=== PATIENT | male | born 1985 | race Caucasian/White ===

== ENCOUNTER 2019-10-08 06:33 | Emergency (ER) | payer BC ==
--- NOTE | 2019-10-08 07:07 | EDM.PDOC ---
ED HPI GENERAL MEDICAL PROBLEM - General Chief Complaint: Abdominal Pain Stated Complaint: ABDOMINAL PAIN Time Seen by Provider: 10/08/19 06:57 Source of Information: Reports: Patient History Limitations: Reports: No Limitations - History of Present Illness INITIAL COMMENTS - FREE TEXT/NARRATIVE: 34-year-old male presents to the ED with recurrent epigastric right upper quadrant abdominal pains that seem to be coming throughout the night. He states t that he had one similar bout about a week ago that only lasted 1 day but for the last 3 nights he is awoken with epigastric pain radiating along his costal margin on the right side. Not sure if it radiates into the back. He does not have heartburn he does not have any feeling of need to burp or belch. States his bowel function has been normal with no diarrhea. No previous abdominal surgery. Is been up most of the night with cramping abdominal pain a strong colicky component to the pain sharp and stabbing. No nausea vomiting. No associated fever or chills. He is currently getting over a upper respiratory tract infection i.e. a cold with minimal cough. He takes no medications. He has no problems eating or drinking. He states he drinks alcohol socially. Onset: Gradual Onset Date: 10/05/19 (Remittent upper abdominal pain primarily epigastrium pit of the stomach and slightly across the right costal margin for the last 3 nights.) Duration: Getting Worse, Intermittent, Waxing/Waning Location: Reports: Abdomen Quality: Reports: Ache, Sharp, Stabbing Severity: Moderate Improves with: Reports: None Worsens with: Reports: None Context: Reports: Other (Spontaneous occurrence.). Denies: Activity, Exercise, Lifting, Sick Contact, Trauma Associated Symptoms: Reports: No Other Symptoms, Malaise. 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 [No Known Home Meds] 10/08/19 [History] Past Medical History - Past Surgical History HEENT Surgical History: Reports: Tonsillectomy Social & Family History - Tobacco Use Smoking Status *Q: Former Smoker Used Tobacco, but Quit: Yes Month/Year Tobacco Last Used: 2011 - Recreational Drug Use Recreational Drug Use: No - Living Situation & Occupation Living situation: Reports: Occupation: Employed ED ROS GENERAL - Review of Systems Review Of Systems: See Below Constitutional: Denies: Fever, Chills, Malaise, Weakness, Fatigue, Decreased Appetite, Weight Loss HEENT: Reports: Other (And over nasal congestion cold at this time.) Respiratory: Reports: Cough. Denies: Shortness of Breath, Wheezing ( Intermittent cough of yellow sputum. Seems to be postnasal drainage.), Pleuritic Chest Pain Cardiovascular: Reports: No Symptoms. Denies: Chest Pain, Blood Pressure Problem, Claudication, Dyspnea on Exertion, Edema, Lightheadedness, Orthopnea Endocrine: Reports: No Symptoms GI/Abdominal: Reports: Abdominal Pain (See history of present illness.). Denies : Constipation, Diarrhea, Decreased Appetite, Difficulty Swallowing, Hematemesis , Hematochezia, Mucous in Stool : Reports: No Symptoms Musculoskeletal: Reports: No Symptoms Skin: Reports: No Symptoms Neurological: Reports: No Symptoms Psychiatric: Reports: No Symptoms Hematologic/Lymphatic: Reports: No Symptoms ED EXAM, GI/ABD - Physical Exam Exam: See Below Exam Limited By: No Limitations General Appearance: Alert, WD/WN, Anxious, Mild Distress, Other (Vital signs show temperature 36.5. Heart rate is 76 and sinus respiratory is 19 O2 sats 96 % on room air BP 135/98.) Eyes: Bilateral: Normal Appearance Throat/Mouth: Normal Inspection, Normal Lips, Normal Teeth, Normal Oropharynx Head: Atraumatic, Normocephalic Neck: Normal Inspection, Supple, Non-Tender, Full Range of Motion. No: Lymphadenopathy (L), Lymphadenopathy (R) Respiratory/Chest: No Respiratory Distress, Lungs Clear, Normal Breath Sounds, No Accessory Muscle Use Cardiovascular: Normal Peripheral Pulses, Regular Rate, Rhythm, No Edema, No Gallop, No Murmur, No Rub GI/Abdominal Exam: Soft, Non-Tender, No Organomegaly, Pelvis Stable, Abnormal Bowel Sounds (Sounds are hyperactive in all 4 quadrants particular the right lower quadrant with high-pitched tinkling bowel sounds.), Other (I believe I can palpate his right hemicolon.). No: Guarding, Rigid, Rebound, Tender (Male) Exam: No Hernia Back Exam: Normal Inspection, Full Range of Motion. No: CVA Tenderness (L), CVA Tenderness (R) Extremities: Normal Inspection, Normal Range of Motion, Non-Tender Neurological: Alert, Oriented, CN II-XII Intact, Normal Cognition Psychiatric: Normal Affect, Normal Mood Skin Exam: Warm, Dry, Intact, Normal Color, No Rash Course - Vital Signs Last Recorded V/S: Last Vital Signs Temp 36.5 C 10/08/19 06:41 Pulse 76 10/08/19 06:41 Resp 19 10/08/19 06:41 BP 135/98 H 10/08/19 06:41 Pulse Ox 96 10/08/19 06:41 - Orders/Labs/Meds Orders: Active Orders 24 hr Category Date Time Status URINALYSIS W/MICROSCOPIC [UA W/MICROSCOPIC] [URIN] Stat Lab 10/08/19 07:01 Ordered Meds: Medications Discontinued Medications Generic Name Dose Route Start Last Admin Trade Name Andree PRN Reason Stop Dose Admin Magnesium Citrate 240 ml 10/08/19 07:36 10/08/19 07:53 Citrate Of Magnesia PO 10/08/19 07:37 240 ml ONETIME ONE Administration - Radiology Interpretation Free Text/Narrative:: 34-year-old male presents to the ED with recurrence of epigastric right upper quadrant abdominal pain that is waking up at night for last 3-4 nights. Does not appreciate any burning component to the pain like dyspepsia. Has no history of heartburn or indigestion. No burping belching associated with the pain. Pain is sharp stabbing and seems to shoot across the upper abdomen. States it will double up at times because of the severity of the pain. Is been present the pain is abated and is down to 1 or 2 out of 10. And reveals hyperactive bowel sounds all 4 quadrants particular right lower quadrant and I believe I can palpate his right hemicolon. The rest of the abdomen is benign particular no McBurney's sign or Alves sign. - Re-Assessments/Exams Free Text/Narrative Re-Assessment/Exam: 10/08/19 07:37 evaluation in the emergency room today in regards to recurrent epigastric or pit of the stomach abdominal pain rating across to the right upper abdomen and slightly into your right back. This is occurred the last 3 nights but last night was much worse than the previous nights. Also occurred once about a week ago. On examination bowel sounds were found to be quite hyperactive in all 4 quadrants of the abdomen indicating that the small bowel was working overtime trying to put something along. The abdomen is otherwise benign showing no evidence of any surgical problems. An x-ray of the abdomen confirms clinical suspicion of constipation with a lot of increased stool throughout the entire right side of the colon up underneath the liver. Therefore this is the problem causing abdominal pain. Treatment is magnesium citrate course called Citroma take 8 ounces mixed with 6 ounces of juice of choice or Gatorade Powerade mouth once. This will usually start to work in 1 to 2 hours and bowels will usually move 3 or 4 times ending in some mild diarrhea. It usually does not cause any cramping. Suggest off work the least this morning. You should be pain-free once the bowel is cleansed. Return to medical care if you have any other problems after bowel cleanse. Departure - Departure Time of Disposition: 07:38 Disposition: Home, Self-Care 01 Condition: Fair Clinical Impression: Constipation by delayed colonic transit Abdominal pain Qualifiers: Abdominal location: epigastric Qualified Code(s): R10.13 - Epigastric pain - Discharge Information *PRESCRIPTION DRUG MONITORING PROGRAM REVIEWED*: Not Applicable *COPY OF PRESCRIPTION DRUG MONITORING REPORT IN PATIENT KATHERIN: Not Applicable Instructions: Constipation, Adult Referrals: PCP,None [Primary Care Provider] - Forms: ED Department Discharge, ED Return to Work/School Form Additional Instructions: Evaluation in the emergency room this morning in regards to recurrence of upper abdominal pain radiating slightly along the right costal margin to right upper abdomen. This is been occurring on a regular basis over the last 3 nights. Last night was the worst. On examination bowel sounds are quite active in all 4 quadrants and was otherwise soft palpation showing no signs of surgical problems. An x-ray of the abdomen confirms constipation with the right hemicolon being stool-filled and very minimal amount of stool in the transverse colon and descending colon. Therefore some for some reason you are still has backed up on you on your right colon as usually it is liquid when it empties out of the small bowel. Your body will still extra fluids from the bowel if you get dehydrated and you have been ill recently with upper respiratory tract infection and low-grade fever which is likely help precipitate this problem. Treatment is to take magnesium citrate or Citroma recommend 8 ounces mixed with 6 ounces of juice of choice taken once. This usually will take 1 to 2 hours to start to work and the bowels will usually move 3 or 4 times ending in bowel cleanse. This should clear up the abdominal pain. You may eat and drink per normal. Up is indicated if you still have right upper quadrant abdominal pain after bowel cleanse. Sepsis Event Note - Evaluation Sepsis Screening Result: No Definite Risk - Focused Exam Vital Signs: Vital Signs Temp Pulse Resp BP Pulse Ox 10/08/19 06:41 36.5 C 76 19 135/98 H 96 Date Exam was Performed: 10/08/19 Time Exam was Performed: 15:27 - My Orders Last 24 Hours: My Active Orders 10/08/19 07:01 URINALYSIS W/MICROSCOPIC [UA W/MICROSCOPIC] [URIN] Stat - Assessment/Plan Last 24 Hours: My Active Orders 10/08/19 07:01 URINALYSIS W/MICROSCOPIC [UA W/MICROSCOPIC] [URIN] Stat
[2019-10-08] MEDS ORDERED: Magnesium Citrate Solution 296 ML Bottle PO ONE (07:36)
--- NOTE | 2019-10-08 08:01 | CR ---
Abdomen: Supine view of the abdomen was obtained. Comparison: No previous abdominal x-ray. Scattered gas and stool noted within the colon which appears within normal limits. No soft tissue abnormality is appreciated. No abnormal calcifications are seen. Bony structures appear within normal limits. Impression: 1. Nothing acute seen on supine abdominal x-ray. Diagnostic code #1 This report was dictated in MDT
== END 2019-10-08 07:55 | disposition home or self-care (01) ==
LOC: JD.ED 06:33
DX: K59.01 Slow transit constipation (principal); R10.13 Epigastric pain; Z87.891 Personal history of nicotine dependence; Z88.0 Allergy status to penicillin
CPT/HCPCS: 74018; 99284; A9270; 99283